=== PATIENT | female | born 1990 | race American Indian/Alaskan Native ===

== ENCOUNTER 2017-01-21 16:58 | Emergency (ER) | payer MEDICAID ==
[2017-01-21 17:06] VITALS: BMI 22.3
[2017-01-21 17:10] VITALS: TEMP 97.6
[2017-01-21] MEDS ORDERED: Sodium Chloride 0.9% 1,000 ML IV STA (17:11)
[2017-01-21] MEDS ORDERED: Albuterol-Ipratrop 3 mg / 0.5 (3 ml) UD IH STA (17:11)
[2017-01-21 17:22] VITALS: RESP 18
--- NOTE | 2017-01-21 17:23 | ED PDOC ---
Arrival/HPI - General Historian: Patient - History of Present Illness Time/Duration: Prior to Arrival <Andrew Tavares - Last Filed: 01/21/17 21:56> <Vipin Hwang - Last Filed: 01/21/17 22:44> - General Time Seen by Provider: 01/21/17 16:59 - History of Present Illness Narrative History of Present Illness (Text): 26 F with pmh of anxiety, asthma presents to the ED with shortness of breath, and abdominal pain. Pt accompanied by her boyfriend state that they were eating [employer] when she started to feel short of breath. Pt states that her abdominal discomfort started this morn but it has gotten worse now. Pt states that she has been admitted to the Medical center before for Asthma exacerbation. Patient currently c/o abdominal pain, nausea, and vomiting. Denies any bowles, dizziness, f/c, cp, palpitations, urinary or bm changes. (Andrew Tavares) Past Medical History - Provider Review Nursing Documentation Reviewed: Yes - Cardiac Hx Cardiac Disorders: No - Pulmonary Hx Respiratory Disorders: Yes Hx Asthma: Yes - Neurological Hx Neurological Disorder: No - HEENT Hx HEENT Disorder: No - Renal Hx Renal Disorder: No - Endocrine/Metabolic Hx Endocrine Disorders: No - Hematological/Oncological Hx Blood Disorders: No - Integumentary Hx Dermatological Disorder: No - Musculoskeletal/Rheumatological Hx Musculoskeletal Disorders: Yes (scoliosis) - Gastrointestinal Hx Gastrointestinal Disorders: No - Genitourinary/Gynecological Hx Genitourinary Disorders: No - Psychiatric Hx Psychophysiologic Disorder: No Hx Substance Use: No <Andrew Tavares - Last Filed: 01/21/17 21:56> Family/Social History Family/Social History: No Known Family HX Smoking Status: Never Smoked Hx Alcohol Use: No Hx Substance Use: No <Andrew Tavares - Last Filed: 01/21/17 21:56> Allergies/Home Meds <Andrew Tavares - Last Filed: 01/21/17 21:56> <Vipin Hwang - Last Filed: 01/21/17 22:44> Allergies/Adverse Reactions: Allergies No Known Allergies Allergy (Verified 01/21/17 17:06) Home Medications: Home Meds Medication Instructions Recorded Confirmed No Known Home Med 01/21/17 01/21/17 Review of Systems - Physician Review All systems were reviewed & negative as marked: Yes - Review of Systems Respiratory: SOB. absent: Cough Cardiovascular: absent: Chest Pain, Palpitations Gastrointestinal: Abdominal Pain, Nausea, Vomiting <Andrew Tavares - Last Filed: 01/21/17 21:56> Physical Exam Temperature: Afebrile Blood Pressure: Hypertensive Pulse: Tachycardic Respiratory Rate: Normal Appearance: Positive for: Well-Appearing, Non-Toxic, Comfortable Pain Distress: None Mental Status: Positive for: Alert and Oriented X 3 - Systems Exam Head: Present: Atraumatic, Normocephalic Pupils: Present: PERRL Extroacular Muscles: Present: EOMI Conjunctiva: Present: Normal Mouth: Present: Moist Mucous Membranes Neck: Present: Normal Range of Motion Respiratory/Chest: Present: Clear to Auscultation, Good Air Exchange. No: Respiratory Distress, Accessory Muscle Use, Wheezes, Rales Cardiovascular: Present: Regular Rate and Rhythm, Normal S1, S2. No: Murmurs Abdomen: Present: Normal Bowel Sounds. No: Tenderness, Distention, Peritoneal Signs Upper Extremity: Present: Normal Inspection. No: Cyanosis, Edema Lower Extremity: Present: Normal Inspection. No: Edema Neurological: Present: GCS=15, CN II-XII Intact, Speech Normal Skin: Present: Warm, Dry, Normal Color. No: Rashes Psychiatric: Present: Alert, Oriented x 3, Normal Insight, Normal Concentration , Anxious, Agitated <Andrew Tavares - Last Filed: 01/21/17 21:56> Medical Decision Making <Andrew Tavares - Last Filed: 01/21/17 21:56> <Vipin Hwang - Last Filed: 01/21/17 22:44> ED Course and Treatment: Impression: 26 F with pmh of anxiety, asthma presents to the ED with acute shortness of breath, abdominal pain, with nausea and vomiting. Differential Diagnosis included but are not limited to: Plan: - CBC, CMP, Lipase, Cardia iso - Duoneb stat - Methylprednisone 125mg stat - Zofran 1mg stat - 1L IVF NS bolus - POC urine - Urine drug screen - EKG stat - Abd US complete -- Reassess and disposition Progress Notes: 01/21/17 17:50 Pt very agitated. Ordered Ativan 1mg IVP stat. 01/21/17 17:58 Pt still very agitated with potential harm to her self and ER staff. Attempting to stand up and pull her leads and sat off. Another Ativan 1mg IVP stat ordered. 01/21/17 18:06 EKG Ordered reviewed and independently interpreted the EKG Rate: 58 BPM Rythm: sinus tosin with sinus arrythmia Interpretation: No ST segment elevation or depression, no T wave inversions, normal intervals. Comparison: 01/21/17 18:23 Spoke to the patients sister which states that the patient was admitted to [facility] 3 months ago to [facility] for Bipolar disease. Pt non compliant with medications. 01/21/17 19:57 Abdominal US: IMPRESSION: Unremarkable exam. No definite cause for pain identified. 01/21/17 20:48 Pt agitated once again. Ativan 1mg IVP ordered. 01/21/17 21:14 CXR - Read by me shows no active disease. 01/21/17 21:28 Pt resting comfortably in bed. Denies any shortness of breath or abd pain. On PE she is CTA b/l no wheezes. Abdomen is non tender and non distended. 01/21/17 21:[address] Odell Gil which agreed with plan to admit the patient onto hospitalist service for intractable vomiting. ([facility] Patient Seen With Resident: In agreement with resident note which contains more details about the patient. Patient was seen and evaluated with resident. Came up with plan and treatment together. 01/21/17 22:34 Patient's history is supplemented by her boyfriend who has known her for three months, as well as sister who provides additional history. Patient reportedly felt short of breath AFTER she had developed worsening epigastric abdominal pain and nausea after eating a hamburger from [employer] prior to arrival. Patient states that she had some epigastric pain "this morning " but also states "I was having anxiety". I asked her specifically to describe her anxiety but she she states she has a history of this and is not specific with symptoms, does not report chest pain or shortness of breath or palpitations prior to onset of symptoms after eating hamburger. On my examination, she states she does have history of asthma, she denies prior admissions or hospitalizations for asthma, but no records available. Mild wheezing noted which resolves after nebulizers. No lip or tongue swelling or urticaria. NO STRIDOR. No pooling of secretions. No neck pain. Denies chest pain. Patient started screaming "get this stuff off me" referreing to monitor leads and screamed "I NEED SOMETHING TO KNOCK ME OUT AND SLEEP" as she was not following ordered to stay in bed or pull off leads. Due to potential harm to self and agitation and inability to perform adequate exam, patient ordered iv ativan as she began to force her hand down into her mouth multiple times, presumably to induce vomiting but she did not state why she was doing it with multiple questioning and persisted to do this despite attempts by boyfriend and staff, and with no resolution after zofrain and iv fluids. Sister reported to medical technicians prior history of bipolar disease with prior admissions. Patient will not inform me whether she takes any medications of any kind. On re-exam, no peritoneal signs, no abdominal distension. MILD epigastric pain with unremarkable ultrasound. UA negative. Patient upon return from ultrasound began to force hand forcibly down throat FULL FIST despite pleas to not do so, she does explain reasoning why. Re-exam no stridor or hypoxia or wheezing. Re-exam abdomen soft and nontender. No chest pain or sob. Sinus arrhythmia on monitor. No facial droop, motor strenth intact in all extremities. Sensation intact. She denies suicidal or homicidal ideation. Will admit for intractable vomiting, serial exams, mental health evaluation when medically cleared, continue hydration and monitoring of symptoms. (Vipin Hwang) - Lab Interpretations Lab Results: 01/21/17 17:10 01/21/17 17:10 Lab Results 01/21/17 20:40: Urine Opiates Screen Negative, Urine Methadone Screen Negative, Ur Barbiturates Screen Negative, Ur Phencyclidine Scrn Negative, Ur Amphetamines Screen Negative, U Benzodiazepines Scrn Positive H, U Oth Cocaine Metabols Negative, U Cannabinoids Screen Positive H 01/21/17 20:40: Urine Color Yellow, Urine Appearance Sl cloudy, Urine pH 6.5, Ur Specific [place] 1.025, Urine Protein 100 H, Urine Glucose (UA) Negative, Urine Ketones >=80, Urine Blood Negative, Urine Nitrate Negative, Urine Bilirubin Negative, Urine Urobilinogen 0.2, Ur Leukocyte Esterase Negative, Urine RBC 0 - 2, Urine WBC 1 - 3, Ur Epithelial Cells 3 - 4, Amorphous Sediment Moderate, Urine Bacteria Occ, Urine HCG, Qual Negative 01/21/17 17:10: Alcohol, Quantitative < 10 01/21/17 17:10: Salicylates < 1 L, Acetaminophen < 10.0 L 01/21/17 17:10: Sodium 139, Potassium 3.4 L, Chloride 101, Carbon Dioxide 25, Anion Gap 16, BUN 10, Creatinine 0.7, Est GFR ( Amer) > 60, Est GFR (Non- Af Amer) > 60, Random Glucose 154 H, Calcium 10.5, Total Bilirubin 1.4 H, AST 26 , ALT 28, Alkaline Phosphatase 93, Lactate Dehydrogenase 390, Total Creatine Kinase 82, Troponin I < 0.01, Total Protein 9.9 H, Albumin 5.3 H, Globulin 4.6, Albumin/Globulin Ratio 1.2, Amylase 140 H, Lipase 139 01/21/17 17:10: PT 11.1, INR 1.03, APTT 24.0, D-Dimer, Quantitative 0.19 01/21/17 17:10: WBC 4.9, RBC 4.52, Hgb 14.0, Hct 40.2, MCV 88.9, MCH 31.0, MCHC 34.8, RDW 13.0, Plt Count 257, MPV 10.7, Gran % 67.7, Lymph % (Auto) 25.4, [place] % (Auto) 6.7 H, Eos % (Auto) 0.0 L, Baso % (Auto) 0.2, Gran # 3.33, Lymph # 1.3 , [place] # 0.3, Eos # 0.0, Baso # 0.01 - RAD Interpretation Radiology Orders: 01/21/17 17:44 ABDOMEN COMPLETE [US] Stat 01/21/17 20:47 CHEST PORTABLE [RAD] Stat - Medication Orders Current Medication Orders: Sodium Chloride (Sodium Chloride 0.9%) 1,000 mls @ 100 mls/hr IV .Q10H SAGE Discontinued Medications Albuterol/Ipratropium (Duoneb 3 Mg/0.5 Mg (3 Ml) Ud) 3 ml IH STAT STA Stop: 01/21/17 17:12 Last Admin: 01/21/17 17:23 Dose: 3 ml Famotidine (Pepcid) 20 mg IVP STAT STA Stop: 01/21/17 20:08 Last Admin: 01/21/17 20:55 Dose: 20 mg Sodium Chloride (Sodium Chloride 0.9%) 1,000 mls @ 1,000 mls/hr IV .Q1H STA Stop: 01/21/17 18:10 Last Admin: 01/21/17 17:23 Dose: 1,000 mls/hr Lorazepam (Ativan) 1 mg IVP ONCE ONE PRN Reason: Protocol Stop: 01/21/17 17:49 Last Admin: 01/21/17 17:56 Dose: 1 mg Lorazepam (Ativan) Confirm Administered Dose 2 mg .ROUTE .STK-MED ONE Stop: 01/21/17 17:53 Last Admin: 01/21/17 17:56 Dose: Lorazepam (Ativan) 1 mg IVP ONCE ONE PRN Reason: Protocol Stop: 01/21/17 17:58 Last Admin: 01/21/17 18:04 Dose: 1 mg Lorazepam (Ativan) 1 mg IVP ONCE ONE PRN Reason: Protocol Stop: 01/21/17 20:48 Last Admin: 01/21/17 20:55 Dose: 1 mg Methylprednisolone (Solu-Medrol) 125 mg IVP STAT STA Stop: 01/21/17 17:12 Last Admin: 01/21/17 17:23 Dose: 125 mg Ondansetron HCl (Zofran Inj) 4 mg IVP ONCE ONE Stop: 01/21/17 17:12 Last Admin: 01/21/17 17:23 Dose: 4 mg Ondansetron HCl (Zofran Inj) 4 mg IVP STAT STA Stop: 01/21/17 17:44 Last Admin: 01/21/17 17:56 Dose: 4 mg Potassium Chloride (K-Dur 20 Meq Er Tab) 20 meq PO STAT STA Stop: 01/21/17 21:30 Last Admin: 01/21/17 22:00 Dose: 20 meq - PA / BOILER SETTER / Resident Statement / has reviewed & agrees with the documentation as recorded. / has examined the patient and agrees with the treatment plan. <Vipin Hwang - Last Filed: 01/21/17 22:44> Disposition/Present on Arrival - Present on Arrival Any Indicators Present on Arrival: No History of DVT/PE: No History of Uncontrolled Diabetes: No Urinary Catheter: No History of Decub. Ulcer: No History Surgical Site Infection Following: None - Disposition Have Diagnosis and Disposition been Completed?: Yes Disposition Time: 21:54 Patient Plan: Admission, Observation <Andrew Tavares - Last Filed: 01/21/17 21:56> <Vipin Hwang - Last Filed: 01/21/17 22:44> - Disposition Diagnosis: Intractable vomiting Disposition: HOSPITALIZED Patient Problems: Current Active Problems Problem Status Onset Intractable vomiting Acute Condition: IMPROVED
[2017-01-21 17:30] LABS: ADD MANUAL DIFF? NO
[2017-01-21 17:38] LABS: BASO # 0.01 K/mm3 (0.0-2.0); BASO % 0.2 % (0.0-3.0); GRAN # 3.33 (1.4-6.5); GRAN % 67.7 % (50.0-68.0); HEMATOCRIT 40.2 % (36.0-48.0); LYMPH # 1.3 (1.2-3.4); LYMPH % 25.4 % (22.0-35.0); MEAN CELL VOLUME 88.9 fL (80.0-105.0); MEAN CORPUSCULAR HGB CONC 34.8 g/dl (31.0-37.0); MEAN PLATELET VOLUME 10.7 fl (7.0-11.0); MONO # 0.3 (0.1-0.6); MONO % 6.7 % (1.0-6.0); PLATELET COUNT 257 10^3/uL (120.0-450.0); WHITE BLOOD COUNT 4.9 10^3/ul (4.5-11.0)
[2017-01-21 17:42] LABS: ALB/GLOB RATIO 1.2 (1.1-1.8); ALKALINE PHOSPHATASE 93 U/L (38-133); ALT/SGPT 28 U/L (7-56); AMYLASE 140 U/L (35-125); AST/SGOT 26 U/L (15-39); BILIRUBIN,TOTAL 1.4 mg/dL (0.2-1.3); BLOOD UREA NITROGEN 10 mg/dL (7-21); CALCIUM 10.5 mg/dL (8.4-10.5); CARBON DIOXIDE 25 mmol/L (21-33); CHLORIDE 101 mmol/L (98-107); GFR AFRICAN-AMERICAN > 60; GLUCOSE,RANDOM 154 mg/dL (70-110); LIPASE 139 U/L (23-300); POTASSIUM 3.4 mmol/L (3.6-5.0); SODIUM 139 mmol/L (132-148); TOTAL PROTEIN 9.9 g/dL (5.8-8.3)
[2017-01-21 17:49] LABS: INR 1.03 (0.93-1.08)
[2017-01-21 17:53] LABS: D DIMER 0.19 mg/L FEU (0-0.50)
[2017-01-21 17:56] VITALS: O2SAT 100
[2017-01-21 18:08] LABS: TROPONIN I < 0.01 ng/mL
[2017-01-21] MEDS ORDERED: Morphine 2 mg/ml ISec IVP STA (18:41)
--- NOTE | 2017-01-21 19:49 | US ---
EXAM: US Abdomen Complete CLINICAL HISTORY: 26 years old, female; Pain; Abdominal pain; Generalized; Additional info: Upper abd pain TECHNIQUE: Real-time ultrasound of the abdomen (complete) with image documentation. EXAM DATE/TIME: 01/21/2017 5:44 PM COMPARISON: No relevant prior studies available. FINDINGS: Gallbladder: Within normal limits in appearance, without evidence of gallstones, significant gallbladder wall thickening, or pericholecystic fluid. Reportedly negative sonographic Hahn's sign. Common bile duct: Does not appear abnormally dilated, measuring less than 6 mm in diameter. Liver: Within normal limits in appearance. Measures 15.9 cm in length. Normal flow seen in the main portal vein on color and Doppler imaging. Pancreas: Within normal limits in appearance. Right kidney: Within normal limits in appearance. Measures 11 cm in length. No evidence of hydronephrosis. Left kidney: Partially obscured by gas. Within normal limits in appearance. Measures 10.4 cm in length. No evidence of hydronephrosis. Spleen: Within normal limits in appearance. Measures 10 cm in length. Aorta: Imaged portions appear unremarkable. IVC: Imaged portions appear unremarkable. IMPRESSION: Unremarkable exam. No definite cause for pain identified.
[2017-01-21] MEDS ORDERED: Sodium Chloride 0.9% 1,000 ML IV SCH ×2 (20:15→23:15)
[2017-01-21 20:57] VITALS: BP 112/67; PULSE 99
[2017-01-21 21:02] LABS: PH,URINE 6.5 (4.7-8.0); URINE BILIRUBIN NEGATIVE (NEGATIVE); URINE BLOOD NEGATIVE (NEGATIVE); URINE GLUCOSE (UA) NEGATIVE (NEGATIVE); URINE KETONE >=80 mg/dL (NEGATIVE); URINE LEUKOCYTE ESTERASE NEGATIVE Leu/uL (NEGATIVE); URINE PROTEIN 100 mg/dL (<30 mg/dL); URINE UROBILINOGEN 0.2 E.U./dL (<1 E.U./dL)
[2017-01-21 21:05] LABS: URINE APPEARANCE SL CLOUDY (CLEAR); URINE COLOR YELLOW (YELLOW)
[2017-01-21 21:17] LABS: URINE RBC 0 - 2 /hpf (0-2)
[2017-01-21 21:18] LABS: URINE AMORPHOUS SEDIMENT MODERATE; URINE BACTERIA OCC (NEG)
[2017-01-21] MEDS ORDERED: Potassium Chloride 20 mEq ER Tab PO STA (21:29)
--- NOTE | 2017-01-21 23:07 | CP.PCM.HP ---
<Martha Costa - Last Filed: 01/22/17 00:33> History of Present Illness - History of Present Illness History of Present Illness: 26 year old female with past medical history of asthma, anxiety , and bipolar disorder presents to [facility] [place] [place] ED with abdominal pain and vomiting. Patient's boyfriend of 3 months was present to provide history. Patient was eating at [employer] this afternoon where she started to have shortness of breath proceeded to vomiting. While vomiting, patient forcibly puts her fingers in her mouth to induce vomiting. Boyfriend states that "makes her feel better this way". The color of vomitus has been from food color to clear. Patient did not have any diarrhea. Patient received multiple doses of zofran and ativan, but will not stop forcing herself to vomiting. Boyfriend is unaware of patient's drug use history. Per ED staff, patient's sister was present briefly and reported that patient had a history of inpatient psychiatry admission at [facility] for bipolar disorder and anxiety and is currently not on psych medications. Unable to obtain detailed ROS due to patient's condition. PMD: Josephine Murphy PMHx: asthma, anxiety, bipolar Allergy: NKDA Social Hx: Current cigarette smoker, social alcohol drinker, denies other drug use Family Hx: unknown Medications: none Present on Admission - Present on Admission Any Indicators Present on Admission: No History of DVT/PE: No History of Uncontrolled Diabetes: No Review of Systems - Review of Systems Systems not reviewed;Unavailable: Uncooperative, Psychotic, Other (intractable vomiting) - Constitutional Constitutional: As Per HPI - EENT Eyes: As Per HPI Ears: As Per HPI Nose/Mouth/Throat: As Per HPI - Breasts Breasts: As Per HPI - Cardiovascular Cardiovascular: As Per HPI - Respiratory Respiratory: As Per HPI, Dyspnea - Gastrointestinal Gastrointestinal: As Per HPI, Abdominal Pain, Nausea, Vomiting - Genitourinary Genitourinary: As Per HPI - Reproductive: Female Reproductive:Female: As Per HPI - Musculoskeletal Musculoskeletal: As Per HPI - Integumentary Integumentary: As Per HPI - Neurological Neurological: As Per HPI - Psychiatric Psychiatric: As Per HPI - Endocrine Endocrine: As Per HPI - Hematologic/Lymphatic Hematologic: As Per HPI Past Patient History - Past Social History Smoking Status: Never Smoked - CARDIAC Hx Cardiac Disorders: No - PULMONARY Hx Respiratory Disorders: Yes Hx Asthma: Yes - NEUROLOGICAL Hx Neurological Disorder: No - HEENT Hx HEENT Problems: No - RENAL Hx Chronic Kidney Disease: No - ENDOCRINE/METABOLIC Hx Endocrine Disorders: No - HEMATOLOGICAL/ONCOLOGICAL Hx Blood Disorders: No - INTEGUMENTARY Hx Dermatological Problems: No - MUSCULOSKELETAL/RHEUMATOLOGICAL Hx Musculoskeletal Disorders: Yes (scoliosis) - GASTROINTESTINAL Hx Gastrointestinal Disorders: No - GENITOURINARY/GYNECOLOGICAL Hx Genitourinary Disorders: No - PSYCHIATRIC Hx Psychophysiologic Disorder: No Hx Substance Use: No - SURGICAL HISTORY Hx Surgeries: No Meds Allergies/Adverse Reactions: Allergies Allergy/AdvReac Type Severity Reaction Status Date / Time No Known Allergies Allergy Verified 02/27/16 18:24 Physical Exam - Constitutional Appears: Unkempt - Head Exam Head Exam: ATRAUMATIC, NORMAL INSPECTION, NORMOCEPHALIC - Eye Exam Eye Exam: EOMI, Normal appearance, PERRL - ENT Exam ENT Exam: Mucous Membranes Moist - Neck Exam Neck exam: Positive for: Normal Inspection - Respiratory Exam Respiratory Exam: Clear to Auscultation Bilateral, NORMAL BREATHING PATTERN. absent: Rhonchi, Wheezes, Respiratory Distress - Cardiovascular Exam Cardiovascular Exam: REGULAR RHYTHM, RRR, +S1, +S2 - GI/Abdominal Exam GI & Abdominal Exam: Normal Bowel Sounds, Soft, Tenderness (diffused tenderness) . absent: Hernia, Rigid - Extremities Exam Extremities exam: Positive for: normal capillary refill, normal inspection, pedal pulses present. Negative for: joint swelling, pedal edema - Neurological Exam Neurological exam: Alert - Skin Skin Exam: Dry, Normal Color, Warm Results - Vital Signs Recent Vital Signs: Last Vital Signs Temp 97.6 F 01/21/17 17:09 Pulse 99 H 01/21/17 20:00 Resp 18 01/21/17 18:38 BP 112/67 01/21/17 20:00 Pulse Ox 100 01/21/17 18:38 - Labs Result Diagrams: 01/21/17 17:10 01/21/17 17:10 Labs: Laboratory Results - last 24 hr 01/21/17 01/21/17 01/21/17 17:10 17:10 17:10 WBC 4.9 RBC 4.52 Hgb 14.0 Hct 40.2 MCV 88.9 MCH 31.0 MCHC 34.8 RDW 13.0 Plt Count 257 MPV 10.7 Gran % 67.7 Lymph % (Auto) 25.4 [place] % (Auto) 6.7 H Eos % (Auto) 0.0 L Baso % (Auto) 0.2 Gran # 3.33 Lymph # 1.3 [place] # 0.3 Eos # 0.0 Baso # 0.01 PT 11.1 INR 1.03 APTT 24.0 D-Dimer, Quantitative 0.19 Sodium 139 Potassium 3.4 L Chloride 101 Carbon Dioxide 25 Anion Gap 16 BUN 10 Creatinine 0.7 Est GFR ( Amer) > 60 Est GFR (Non-Af Amer) > 60 Random Glucose 154 H Calcium 10.5 Total Bilirubin 1.4 H AST 26 ALT 28 Alkaline Phosphatase 93 Lactate Dehydrogenase 390 Total Creatine Kinase 82 Troponin I < 0.01 Total Protein 9.9 H Albumin 5.3 H Globulin 4.6 Albumin/Globulin Ratio 1.2 Amylase 140 H Lipase 139 Urine Color Urine Appearance Urine pH Ur Specific [place] Urine Protein Urine Glucose (UA) Urine Ketones Urine Blood Urine Nitrate Urine Bilirubin Urine Urobilinogen Ur Leukocyte Esterase Urine RBC Urine WBC Ur Epithelial Cells Amorphous Sediment Urine Bacteria Urine HCG, Qual Salicylates Urine Opiates Screen Urine Methadone Screen Acetaminophen Ur Barbiturates Screen Ur Phencyclidine Scrn Ur Amphetamines Screen U Benzodiazepines Scrn U Oth Cocaine Metabols U Cannabinoids Screen Alcohol, Quantitative 01/21/17 01/21/17 01/21/17 17:10 17:10 20:40 WBC RBC Hgb Hct MCV MCH MCHC RDW Plt Count MPV Gran % Lymph % (Auto) [place] % (Auto) Eos % (Auto) Baso % (Auto) Gran # Lymph # [place] # Eos # Baso # PT INR APTT D-Dimer, Quantitative Sodium Potassium Chloride Carbon Dioxide Anion Gap BUN Creatinine Est GFR ( Amer) Est GFR (Non-Af Amer) Random Glucose Calcium Total Bilirubin AST ALT Alkaline Phosphatase Lactate Dehydrogenase Total Creatine Kinase Troponin I Total Protein Albumin Globulin Albumin/Globulin Ratio Amylase Lipase Urine Color Yellow Urine Appearance Sl cloudy Urine pH 6.5 Ur Specific [place] 1.025 Urine Protein 100 H Urine Glucose (UA) Negative Urine Ketones >=80 Urine Blood Negative Urine Nitrate Negative Urine Bilirubin Negative Urine Urobilinogen 0.2 Ur Leukocyte Esterase Negative Urine RBC 0 - 2 Urine WBC 1 - 3 Ur Epithelial Cells 3 - 4 Amorphous Sediment Moderate Urine Bacteria Occ Urine HCG, Qual Negative Salicylates < 1 L Urine Opiates Screen Urine Methadone Screen Acetaminophen < 10.0 L Ur Barbiturates Screen Ur Phencyclidine Scrn Ur Amphetamines Screen U Benzodiazepines Scrn U Oth Cocaine Metabols U Cannabinoids Screen Alcohol, Quantitative < 10 01/21/17 20:40 WBC RBC Hgb Hct MCV MCH MCHC RDW Plt Count MPV Gran % Lymph % (Auto) [place] % (Auto) Eos % (Auto) Baso % (Auto) Gran # Lymph # [place] # Eos # Baso # PT INR APTT D-Dimer, Quantitative Sodium Potassium Chloride Carbon Dioxide Anion Gap BUN Creatinine Est GFR ( Amer) Est GFR (Non-Af Amer) Random Glucose Calcium Total Bilirubin AST ALT Alkaline Phosphatase Lactate Dehydrogenase Total Creatine Kinase Troponin I Total Protein Albumin Globulin Albumin/Globulin Ratio Amylase Lipase Urine Color Urine Appearance Urine pH Ur Specific [place] Urine Protein Urine Glucose (UA) Urine Ketones Urine Blood Urine Nitrate Urine Bilirubin Urine Urobilinogen Ur Leukocyte Esterase Urine RBC Urine WBC Ur Epithelial Cells Amorphous Sediment Urine Bacteria Urine HCG, Qual Salicylates Urine Opiates Screen Negative Urine Methadone Screen Negative Acetaminophen Ur Barbiturates Screen Negative Ur Phencyclidine Scrn Negative Ur Amphetamines Screen Negative U Benzodiazepines Scrn Positive H U Oth Cocaine Metabols Negative U Cannabinoids Screen Positive H Alcohol, Quantitative Assessment & Plan - Assessment and Plan (Free Text) Assessment: 26 year old female with past medical history of asthma, anxiety, and bipolar disorder presents with intractable vomiting Plan: Nausea & vomiting -Illicit drugs side effect vs psychiatric etiology -UDS positive for Cannabinoids and benzodiazepines -IVF NS -Zofran IV prn -NPO -Abdominal U/S unremarkable Agitation -Patient was agitated in the ED -Multiple doses of ativan were given -Will order medical restraints if continues Hypokalemia -Potassium Polysubstance abuse -Urine drug screen positive for Cannabinoids and benzodiazepines -Will consult patient on smoking and marijuana use Untreated bipolar disorder -Psychiatry consult, Dr. Tran help appreciated Prophylactic measures -Protonix for GI ppx -SCD for DVT ppx <Bob Gil - Last Filed: 01/23/17 17:34> Results - Vital Signs Recent Vital Signs: Last Vital Signs Temp 97.6 F 01/21/17 17:09 Pulse 99 H 01/21/17 20:00 Resp 18 01/21/17 18:38 BP 112/67 01/21/17 20:00 Pulse Ox 100 01/21/17 18:38 - Labs Result Diagrams: 01/21/17 17:10 01/21/17 17:10 Addendum Addendum: 01/23/17 17:34 pt singed out ama.
[2017-01-22] MEDS ORDERED: Sodium Chloride 0.9% 1,000 ML IV SCH (00:45)
--- NOTE | 2017-01-22 06:37 | RAD ---
HISTORY: sob COMPARISON: No prior. FINDINGS: LUNGS: No active pulmonary disease. PLEURA: No significant pleural effusion identified, no pneumothorax apparent. CARDIOVASCULAR: Normal. OSSEOUS STRUCTURES: Moderate scoliosis centered thoracolumbar junction VISUALIZED UPPER ABDOMEN: Normal. OTHER FINDINGS: None. IMPRESSION: No active disease. Moderate scoliosis centered thoracolumbar junction. Consider a scoliosis series follow-up. Note this report was placed in PA review folder followup
--- NOTE | 2017-01-22 16:45 | CARD ---
APPROVED REPORT EKG Measurement Heart [id number] [id number] <Conclusion> Sinus bradycardia with sinus arrhythmia Otherwise normal ECG
== END 2017-01-21 23:36 | disposition left against medical advice (07) ==
LOC: ED 16:58 → MERGE 16:58 → UNDOADMOB 21:54 → ERH 21:54
DX: R11.10 Vomiting, unspecified (principal); J45.909 Unspecified asthma, uncomplicated; F41.9 Anxiety disorder, unspecified; F31.9 Bipolar disorder, unspecified
CPT/HCPCS: 71010; 76700; 80053; 80320; 80324; 80329; 80345; 80346; 80349; 80353; 80358; 80361; 81001; 82150; 82550; 82948; 83615; 83690; 83992; 84484; 84703; 85025; 85378; 85610; 85730; 93005; 96361; 96374; 96375; 96376; 99285; J2060; J2405; J2930; J7040